=== PATIENT | female | born 1970 ===

== ENCOUNTER 2023-08-03 11:30 | Inpatient (IN) | payer OTHER ==
[~2023-08-03] VITALS: Ht 154.9 cm; Wt 61.2 kg
[2023-08-06] MEDS ORDERED: AMLODIPINE 5MG (13:31)
[2023-08-06] MEDS ORDERED: VALSARTAN160 MG (13:32)
[2023-08-06] MEDS ORDERED: LIPITOR 10MG (13:32)
[2023-08-06] MEDS ORDERED: FLONASE16 GM (13:33)
[2023-08-06] MEDS ORDERED: PEPCID AC10 MG (13:33)
[2023-08-06] MEDS ORDERED: [UNRECOGNIZED DRUG - OTHER] (13:33)
[2023-08-06] MEDS ORDERED: ZYRTEC10 MG (13:33)
[2023-08-08] MEDS ORDERED: CEFAZOLIN SODIUM 1,000 MG VIAL ONE (09:06)
[2023-08-08] MEDS ORDERED: POVIDONE-IODINE 118 ML BOTT TOP ONE (10:34)
[2023-08-08] MEDS ORDERED: CEFAZOLIN SODIUM 1,000 MG VIAL IV SCH (11:15)
[2023-08-08] MEDS ORDERED: POVIDONE-IODINE 118 ML BOTT TOP SCH (11:15)
[2023-08-08] MEDS ORDERED: PROMETHAZINE HCL 50 MG/ML AMPUL IM PRN (13:00)
[2023-08-08] MEDS ORDERED: MEPERIDINE HCL/PF 50 MG/ML VIAL IM PRN (13:00)
[2023-08-08] MEDS ORDERED: SUGAMMADEX SODIUM 200 MG/2 ML VIAL IV ONE (13:00)
[2023-08-08] MEDS ORDERED: SUGAMMADEX SODIUM 200 MG/2 ML VIAL IV SCH (13:15)
[2023-08-08] MEDS ORDERED: MEPERIDINE HCL/PF 50 MG/ML VIAL IV PRN (17:36)
[2023-08-08] MEDS ORDERED: PROMETHAZINE HCL 50 MG/ML AMPUL IV PRN (17:45)
[2023-08-08] MEDS ORDERED: PROMETHAZINE HCL 25 MG/ML AMPUL ONE (18:00)
[2023-08-08 20:04] LABS: HEMATOCRIT 40.5 % (36.0-45.00); HEMOGLOBIN 13.9 g/dL (12.0-15.00); MEAN CELL VOLUME 92.6 fL (80.00-100.00); MEAN CORPUSCULAR HEMOGLOBIN 31.9 pg (27.00-32.0); MEAN CORPUSCULAR HGB CONC 34.4 g/dl (32.0-36.0); PLATELET COUNT 313 K/uL (150-450); RED BLOOD COUNT 4.37 M/uL (4.00-6.00); RED CELL DISTRIBUTION WIDTH 13.6 % (11.5-14.5)
[2023-08-09] MEDS ORDERED: OxyCODONE HCL/APAP UD (PERCOCET) PO PRN (08:00)
[2023-08-09] MEDS ORDERED: FAMOtidine 20 MG TABLET PO SCH (09:00)
[2023-08-09] MEDS ORDERED: SIMETHICONE 125 MG CAPSULE PO SCH (09:00)
[2023-08-09] MEDS ORDERED: PATIENTS OWN MEDICATION (MEDICAMENTO EN PISO) PO SCH (09:00)
[2023-08-09] MEDS ORDERED: DOCUSATE SODIUM 100MG CAP PO SCH (09:00)
[2023-08-10] MEDS ORDERED: [UNRECOGNIZED DRUG - OTHER] (16:19)
[2023-08-10] MEDS ORDERED: ATORVASTATIN CA10 MG (16:19)
[2023-08-10] MEDS ORDERED: AMLODIPINE BESYL5 MG (16:19)
[2023-08-11] MEDS ORDERED: IBUprofen 800 MG TABLET PO PRN (09:30)
[2023-08-11] MEDS ORDERED: IBUPROFEN800 MG PO (11:20)
== END 2023-08-11 12:22 | disposition home or self-care (01) | DRG 743 ==
LOC: O/R 08-08 06:32 → OB/GYN 08-08 06:32 → SURH 08-08 09:15 → OB/GYN 08-08 13:02
PROVIDERS: ADMIT Obstetrics & Gynecology; ATTEND Obstetrics & Gynecology
PROC: 0UQ20ZZ Repair Bilateral Ovaries, Open Approach (ICD-10-PCS; 2023-08-08)
PROC: 0UT90ZZ Resection of Uterus, Open Approach (ICD-10-PCS; principal; 2023-08-08 09:15)
DX: D25.9 Leiomyoma of uterus, unspecified (principal); Z20.822 Contact with and (suspected) exposure to COVID-19